=== PATIENT | male | born 1935 | race Caucasian/White ===

== ENCOUNTER 2017-08-15 11:07 | Day surgery (SDC) | payer MEDICARE ==
[2017-08-13 16:15] LABS: EOSINOPHILS % (AUTO) 2.8 % (0.0-8.0); HEMATOCRIT 30.1 % (42-54); LYMPHOCYTES % (AUTO) 23.5 % (21.0-51.0); MEAN CORPUSCULAR HEMOGLOBIN 28.4 pg (27.0-33.0); MEAN CORPUSCULAR HGB CONC 33.9 g/dL (32.0-36.0); MEAN CORPUSCULAR VOLUME 83.7 fL (79-99); MONOCYTES % (AUTO) 12.5 % (3.0-13.0); NEUTROPHILS % (AUTO) 60.2 % (40.0-77.0); PLATELET COUNT (AUTO) 373 K/uL (130-400); RED BLOOD CELL COUNT(AUTO) 3.59 MIL/uL (4.50-6.20); RED CELL DISTRIBUTION WIDTH 15.3 % (11.0-15.5); WHITE BLOOD COUNT (AUTO) 7.4 K/uL (4.8-10.8)
[2017-08-13 16:17] VITALS: BP 143/68
[2017-08-13 16:20] LABS: CREATININE 1.7 mg/dL (0.5-1.5); POTASSIUM 4.4 mmol/L (3.5-5.1)
[2017-08-15] VITALS (14 sets, daily range): BP systolic 123–197; BP diastolic 60–89
[~2017-08-15] VITALS: Ht 175.3 cm; Wt 61.6 kg
[~2017-08-15 11:07] MED LIST: ESTR PO; LEVOFLOXACIN 500 MG/D5W 100 ML 100 ML IV SCH
[2017-08-15] MEDS ORDERED: LACTATED RINGERS 1000ML 1,000 ML IV ONE (12:14)
[2017-08-15] MEDS ORDERED: LEVOFLOXACIN 500 MG/D5W 100 ML 100 ML ONE (12:15)
[2017-08-15] MEDS ORDERED: LEVO250T2 PO (14:19)
[2017-08-15] MEDS ORDERED: PROPOFOL 10 MG/ML 20ML VIAL IV ONE (15:12)
[2017-08-15] MEDS ORDERED: FENTANYL CITRATE PF 50 MCG/1 ML 2ML VIAL ONE ×2 (15:13→15:15)
[2017-08-15] MEDS ORDERED: MEPERIDINE-PF 25 MG/ML SYG ONE (16:28)
[2017-08-15] MEDS ORDERED: OPIUM/BELLADONNA ALKALOIDS 1 EACH SUPP.RECT RC ONE (16:37)
[2017-08-15] MEDS ORDERED: MIDAZOLAM HCL 1 MG/ML 2ML VIAL ONE (17:04)
[2017-08-15] MEDS ORDERED: HYDRALAZINE HCL 20 MG/ML VIAL ONE (17:33)
[2017-08-15] MEDS ORDERED: PHENAZOPYRIDINE HCL 200 MG TABLET ONE (18:17)
== END 2017-08-15 18:45 | disposition home or self-care (01) ==
LOC: DAH 11:07
PROVIDERS: ATTEND Urology
DX: N40.1 Benign prostatic hyperplasia with lower urinary tract symptoms (principal); R33.8 Other retention of urine; N31.9 Neuromuscular dysfunction of bladder, unspecified; I12.9 Hypertensive chronic kidney disease with stage 1 through stage 4 chronic kidney disease, or unspecified chronic kidney disease; N18.9 Chronic kidney disease, unspecified; R31.0 Gross hematuria; Z98.890 Other specified postprocedural states; Z88.0 Allergy status to penicillin; Z79.899 Other long term (current) drug therapy; Z87.891 Personal history of nicotine dependence; C61 Malignant neoplasm of prostate; Z85.828 Personal history of other malignant neoplasm of skin
CPT/HCPCS: 36415; 52601; 80048; 85025; 88305; 93005; A4354; A4358; A4510; A4600; A5113; J0360; J1956; J2175; J2250; J2704; J3010 ×2; J7120 ×2

== ENCOUNTER 2017-12-12 03:33 | Inpatient (IN) | payer MEDICARE ==
[~2017-12-12] VITALS: Ht 177.8 cm; Wt 59.0 kg
[2017-12-12] VITALS (22 sets, daily range): BP systolic 100–145; BP diastolic 51–75
[~2017-12-12 03:33] MED LIST changes: -LEVOFLOXACIN 500 MG/D5W 100 ML 100 ML IV SCH; +PHYT5TAB PO
[2017-12-12 05:13] LABS: EOSINOPHILS % (AUTO) 0.9 % (0.0-8.0); HEMATOCRIT 29.5 % (42-54); MEAN CORPUSCULAR HEMOGLOBIN 27.5 pg (27.0-33.0); MEAN CORPUSCULAR HGB CONC 33.4 g/dL (32.0-36.0); MEAN CORPUSCULAR VOLUME 82.5 fL (79-99); MONOCYTES % (AUTO) 15.9 % (3.0-13.0); NEUTROPHILS % (AUTO) 66.2 % (40.0-77.0); PLATELET COUNT (AUTO) 245 K/uL (130-400); RED BLOOD CELL COUNT(AUTO) 3.57 MIL/uL (4.50-6.20); RED CELL DISTRIBUTION WIDTH 16.8 % (11.0-15.5); WHITE BLOOD COUNT (AUTO) 5.9 K/uL (4.8-10.8)
[2017-12-12] MEDS ORDERED: ONDANSETRON HCL 4 MG/2 ML VIAL ONE ×2 (05:14→20:41)
[2017-12-12] MEDS ORDERED: MORPHINE SULFATE 4 MG/1ML SYG ONE (05:14)
[2017-12-12] MEDS ORDERED: KETOROLAC TROMETHAMINE 30MG/ML ONE (05:18)
[2017-12-12 05:20] LABS: CREATININE 1.8 mg/dL (0.5-1.5)
[2017-12-12 05:33] LABS: APPEARANCE,URINE CLOUDY (CLEAR); BILIRUBIN,URINE NEGATIVE (NEGATIVE); COLOR,URINE RED (YELLOW); GLUCOSE, URINE (UA) NEGATIVE (NEGATIVE); KETONES,URINE NEGATIVE (NEGATIVE); LEUKOCYTE ESTERASE ,URINE NEGATIVE (NEGATIVE); NITRATE,URINE POSITIVE (NEGATIVE); OCCULT BLOOD,URINE LARGE (NEGATIVE); PH,URINE 6.5 (5.0-8.0); PROTEIN,URINE >=300 (NEGATIVE); UROBILINOGEN,URINE 0.2 mg/dL (0.2-1.0)
[2017-12-12 05:47] LABS: BACTERIA,URINE Rare /HPF (None Seen); RBC,URINE TNTC /HPF (0-1)
[2017-12-12] MEDS ORDERED: SODIUM CHLORIDE 0.9% 50 ML IV ONE (07:40)
[2017-12-12] MEDS ORDERED: CEFTRIAXONE SODIUM 1 GM ONE (07:40)
[2017-12-12] MEDS ORDERED: SODIUM CHLORIDE 0.9% 1000ML 1,000 ML IV ONE (07:47)
[2017-12-12] MEDS: SODIUM CHLORIDE 0.9% 1000ML 1,000 ML IV SCH ×2 (10:39→23:16)
[2017-12-12 14:50] LABS: HEMATOCRIT 25.1 % (42-54)
[2017-12-12 15:04] LABS: INR 1.03 (0.85-1.15); PROTHROMBIN TIME 10.8 SEC (9.6-11.6)
[2017-12-12] MEDS ORDERED: FENTANYL CITRATE PF 50 MCG/1 ML 2ML VIAL ONE (20:41)
[2017-12-12] MEDS ORDERED: MIDAZOLAM HCL 1 MG/ML 2ML VIAL ONE (20:41)
[2017-12-12] MEDS ORDERED: LIDOCAINE PF 2% 5ML ABBOJECT ONE (20:41)
[2017-12-12] MEDS ORDERED: PROPOFOL 10 MG/ML 20ML VIAL IV ONE (20:41)
[2017-12-12] MEDS ORDERED: DEXAMETHASONE SOD PHOSPHATE 10MG/ML 1ML VIAL ONE (20:41)
[2017-12-12] MEDS ORDERED: ROCURONIUM 10MG/1ML SYR 10 MG/ML ML ONE (21:01)
[2017-12-12] MEDS ORDERED: GLYCOPYRROLATE 1 MG/5 ML SYRINGE ONE (21:26)
[2017-12-12] MEDS ORDERED: NEOSTIGMINE 5MG/5ML SYR IV ONE (21:27)
[2017-12-13] VITALS (10 sets, daily range): BP systolic 116–150; BP diastolic 57–80
[2017-12-13] MEDS: SODIUM CHLORIDE 0.9% 1000ML 1,000 ML IV SCH ×4 (00:45→21:20)
[2017-12-13] MEDS: DOCUSATE SODIUM 100 MG CAP PO SCH ×2 (08:12→21:18)
[2017-12-13] MEDS: CEFTRIAXONE SODIUM 1 GM IVP SCH (10:14)
[2017-12-13 11:16] LABS: BASOPHILS % (AUTO) 0.7 % (0.0-5.0); EOSINOPHILS % (AUTO) 1.1 % (0.0-8.0); LYMPHOCYTES % (AUTO) 13.6 % (21.0-51.0); MEAN CORPUSCULAR HEMOGLOBIN 28.1 pg (27.0-33.0); MEAN CORPUSCULAR HGB CONC 33.6 g/dL (32.0-36.0); MEAN CORPUSCULAR VOLUME 83.7 fL (79-99); MONOCYTES % (AUTO) 14.1 % (3.0-13.0); NEUTROPHILS % (AUTO) 70.5 % (40.0-77.0); PLATELET COUNT (AUTO) 213 K/uL (130-400); RED BLOOD CELL COUNT(AUTO) 2.45 MIL/uL (4.50-6.20); RED CELL DISTRIBUTION WIDTH 16.6 % (11.0-15.5); WHITE BLOOD COUNT (AUTO) 5.4 K/uL (4.8-10.8)
[2017-12-13 11:22] LABS: ALBUMIN 1.7 g/dL (3.5-5.0); BILIRUBIN,TOTAL 0.3 mg/dL (0.2-1.0); HEMATOCRIT 20.5 % (42-54); POTASSIUM 3.7 mmol/L (3.5-5.1); TOTAL PROTEIN, SERUM 4.2 g/dL (6.0-8.3)
[2017-12-14] VITALS (8 sets, daily range): BP systolic 134–166; BP diastolic 61–80
[2017-12-14 05:58] LABS: BASOPHILS % (AUTO) 0.7 % (0.0-5.0); EOSINOPHILS % (AUTO) 1.1 % (0.0-8.0); HEMATOCRIT 25.5 % (42-54); LYMPHOCYTES % (AUTO) 16.2 % (21.0-51.0); MEAN CORPUSCULAR HEMOGLOBIN 28.4 pg (27.0-33.0); MEAN CORPUSCULAR HGB CONC 33.6 g/dL (32.0-36.0); MEAN CORPUSCULAR VOLUME 84.6 fL (79-99); MONOCYTES % (AUTO) 15.4 % (3.0-13.0); NEUTROPHILS % (AUTO) 66.6 % (40.0-77.0); PLATELET COUNT (AUTO) 184 K/uL (130-400); RED BLOOD CELL COUNT(AUTO) 3.01 MIL/uL (4.50-6.20); RED CELL DISTRIBUTION WIDTH 16.4 % (11.0-15.5); WHITE BLOOD COUNT (AUTO) 5.3 K/uL (4.8-10.8)
[2017-12-14 06:06] LABS: CREATININE 1.6 mg/dL (0.5-1.5); POTASSIUM 3.7 mmol/L (3.5-5.1)
[2017-12-14] MEDS: DOCUSATE SODIUM 100 MG CAP PO SCH ×2 (10:32→20:56)
[2017-12-14] MEDS: SODIUM CHLORIDE 0.9% 1000ML 1,000 ML IV SCH ×3 (10:32→20:57)
[2017-12-14] MEDS: CEFTRIAXONE SODIUM 1 GM IVP SCH (10:32)
[2017-12-14] MEDS: AMINOCAPROIC ACID 10,000 MG in SODIUM CHLORIDE 0.9% 1000ML 1,000 ML IV SCH (10:33)
[2017-12-14] MEDS ORDERED: ACETAMINOPHEN-CODEINE 300/30MG TAB PO PRN (12:45)
[2017-12-15 04:00] VITALS: BP 150/78
[2017-12-15 05:51] LABS: BASOPHILS % (AUTO) 0.9 % (0.0-5.0); EOSINOPHILS % (AUTO) 1.7 % (0.0-8.0); HEMATOCRIT 25.3 % (42-54); LYMPHOCYTES % (AUTO) 15.5 % (21.0-51.0); MEAN CORPUSCULAR VOLUME 85.3 fL (79-99); MONOCYTES % (AUTO) 12.8 % (3.0-13.0); NEUTROPHILS % (AUTO) 69.1 % (40.0-77.0); PLATELET COUNT (AUTO) 203 K/uL (130-400); RED BLOOD CELL COUNT(AUTO) 2.97 MIL/uL (4.50-6.20); RED CELL DISTRIBUTION WIDTH 16.7 % (11.0-15.5); WHITE BLOOD COUNT (AUTO) 5.5 K/uL (4.8-10.8)
[2017-12-15 06:16] LABS: ALBUMIN 1.7 g/dL (3.5-5.0); BILIRUBIN,TOTAL 0.4 mg/dL (0.2-1.0); CREATININE 1.5 mg/dL (0.5-1.5); POTASSIUM 3.4 mmol/L (3.5-5.1); TOTAL PROTEIN, SERUM 4.2 g/dL (6.0-8.3)
[2017-12-15 07:00] VITALS: BP 155/71
[2017-12-15] MEDS: SODIUM CHLORIDE 0.9% 1000ML 1,000 ML IV SCH ×2 (08:45→22:56)
[2017-12-15] MEDS: DOCUSATE SODIUM 100 MG CAP PO SCH ×2 (09:51→20:11)
[2017-12-15] MEDS: CEFTRIAXONE SODIUM 1 GM IVP SCH (09:51)
[2017-12-15 11:00] VITALS: BP 141/77
[2017-12-15] MEDS: AMINOCAPROIC ACID 10,000 MG in SODIUM CHLORIDE 0.9% 1000ML 1,000 ML IV SCH (12:50)
[2017-12-15 16:00] VITALS: BP 138/71
[2017-12-15 19:30] VITALS: BP 147/76
[2017-12-15 23:08] VITALS: BP 156/88
[2017-12-16 03:50] VITALS: BP 144/85
[2017-12-16] MEDS: SODIUM CHLORIDE 0.9% 1000ML 1,000 ML IV SCH ×3 (06:26→23:59)
[2017-12-16 07:43] LABS: BASOPHILS % (AUTO) 0.8 % (0.0-5.0); EOSINOPHILS % (AUTO) 0.7 % (0.0-8.0); HEMATOCRIT 27.7 % (42-54); LYMPHOCYTES % (AUTO) 10.8 % (21.0-51.0); MEAN CORPUSCULAR HEMOGLOBIN 30.2 pg (27.0-33.0); MEAN CORPUSCULAR HGB CONC 35.4 g/dL (32.0-36.0); MEAN CORPUSCULAR VOLUME 85.4 fL (79-99); MONOCYTES % (AUTO) 12.7 % (3.0-13.0); PLATELET COUNT (AUTO) 203 K/uL (130-400); RED BLOOD CELL COUNT(AUTO) 3.24 MIL/uL (4.50-6.20); RED CELL DISTRIBUTION WIDTH 17.2 % (11.0-15.5); WHITE BLOOD COUNT (AUTO) 6.8 K/uL (4.8-10.8)
[2017-12-16 08:00] VITALS: BP 130/68
[2017-12-16 08:10] LABS: ALBUMIN 1.7 g/dL (3.5-5.0); BILIRUBIN,TOTAL 0.3 mg/dL (0.2-1.0); CREATININE 1.8 mg/dL (0.5-1.5); POTASSIUM 3.5 mmol/L (3.5-5.1); TOTAL PROTEIN, SERUM 4.5 g/dL (6.0-8.3)
[2017-12-16] MEDS: DOCUSATE SODIUM 100 MG CAP PO SCH (08:32)
[2017-12-16] MEDS: CEFTRIAXONE SODIUM 1 GM IVP SCH (09:18)
[2017-12-16] MEDS ORDERED: DOCUSATE SODIUM 100 MG CAP PO PRN (09:30)
[2017-12-16 11:00] VITALS: BP 146/77
[2017-12-16] MEDS ORDERED: IBUPROFEN 400 MG TABLET PO PRN (11:15)
[2017-12-16 16:00] VITALS: BP 148/73
[2017-12-16] MEDS: LIDOCAINE 5% TOPICAL PATCH TP SCH (17:09)
[2017-12-16 20:00] VITALS: BP 148/85
[2017-12-17] VITALS: BP 174/75
[2017-12-17 04:00] VITALS: BP 155/83
[2017-12-17 08:21] VITALS: BP 151/84
[2017-12-17] MEDS: LIDOCAINE 5% TOPICAL PATCH TP SCH (09:01)
[2017-12-17] MEDS: CEFTRIAXONE SODIUM 1 GM IVP SCH (09:01)
[2017-12-17 12:03] VITALS: BP 161/98
[2017-12-17 16:16] VITALS: BP 160/95
[2017-12-17] MEDS ORDERED: CEPH500C2 PO (16:25)
== END 2017-12-17 18:30 | DRG 853 ==
LOC: EDH 03:33 → EDHIP 05:40 → 4AH 07:34 → 3AH 12-14 13:46
PROVIDERS: ADMIT Hospitalist; ATTEND Hospitalist
PROC: 0TCB8ZZ Extirpation of Matter from Bladder, Via Natural or Artificial Opening Endoscopic (ICD-10-PCS; principal; 2017-12-12 21:04)
PROC: 0T5C8ZZ Destruction of Bladder Neck, Via Natural or Artificial Opening Endoscopic (ICD-10-PCS; 2017-12-12 21:04)
DX: A41.9 Sepsis, unspecified organism (principal); E43 Unspecified severe protein-calorie malnutrition; N39.0 Urinary tract infection, site not specified; N02.9 Recurrent and persistent hematuria with unspecified morphologic changes; D62 Acute posthemorrhagic anemia; Z68.1 Body mass index [BMI] 19.9 or less, adult; N17.9 Acute kidney failure, unspecified; C67.9 Malignant neoplasm of bladder, unspecified; C61 Malignant neoplasm of prostate; F17.200 Nicotine dependence, unspecified, uncomplicated; I12.9 Hypertensive chronic kidney disease with stage 1 through stage 4 chronic kidney disease, or unspecified chronic kidney disease
CPT/HCPCS: 36415; 36430; 73030; 74176; 80048; 80053; 81001; 85014; 85018; 85025; 85610; 86850; 86900; 86901; 86922; 87040; 87088; 87186; 97039; A4218; A4346; A4354; A4565; A6250; J0696; J1100; J1885; J2001; J2250; J2270; J2405; J2704; J2710; J3010; J3490; J7030; P9016

== ENCOUNTER 2017-12-19 16:32 | Emergency (ER) | payer MEDICARE ==
[~2017-12-19 16:32] MED LIST changes: +CEPH500C2 PO
[2017-12-19] MEDS ORDERED: ONDANSETRON ODT 4 MG TAB ONE (17:36)
[2017-12-19] MEDS ORDERED: ACETAMINOPHEN-CODEINE 300/30MG TAB ONE (17:36)
== END 2017-12-19 19:53 | disposition home or self-care (01) ==
LOC: EDH 16:32
DX: S42.202A Unspecified fracture of upper end of left humerus, initial encounter for closed fracture (principal); M19.90 Unspecified osteoarthritis, unspecified site; J44.9 Chronic obstructive pulmonary disease, unspecified; Z85.46 Personal history of malignant neoplasm of prostate; Z85.51 Personal history of malignant neoplasm of bladder; Z88.0 Allergy status to penicillin; X58.XXXA Exposure to other specified factors, initial encounter; Y93.89 Activity, other specified; Y92.89 Other specified places as the place of occurrence of the external cause; Y99.8 Other external cause status